=== PATIENT | female | born 1955 | race Caucasian/White ===

== ENCOUNTER 2016-10-22 03:39 | Emergency (ER) | payer SELFPAY ==
[~2016-10-22 03:39] MED LIST: ALBUTEROL SULF8.5 GM IH; ALBUTEROL0.83 MG/ML INH; ALBUTEROL17 GM INH; ALBUTEROL2.5 MG/3 M IH; ANTIVERT25 MG PO; ATIVAN0.5 MG PO; BREO ELLIPTA 11 EAC1 IH; COMPAZINE10 M PO; CYCLOBENZAPRINE10 MG PO; DUONEB; DUONEB 2.5-0.5 M3 ML; DUONEB 2.5-0.5 M3 ML IH; DUONEB 2.5-0.5MG3 M1 AERO NEB; EPIPEN0.3 MG/0.1 IM; EQL FISH OIL 1,1 CA1 PO; EXTRA STRENGTH500 M1 PO; FLEXERIL5 MG PO; IPRAT-ALBUT 0.5-3 ML AERO NEB; IPRAT-ALBUT 0.5-3 ML IH; LEVAQUIN750 M1 PO; LEVAQUIN750 MG PO; MOTRIN600 MG PO; NOVOLOG MI100 UNITS/ SQ; PENICILLIN; PENICILLIN V P500 M1 PO; PERCOCET 5/3251 TAB PO; PERCOCET 5MG/AP1 TA3 PO; PREDNISONE; PREDNISONE10 M1 PO; PREDNISONE10 MG PO; PREDNISONE20 M1 PO; PREDNISONE20 MG; PREDNISONE20 MG PO; PREDNISONE5 M1 PO; PREDNISONE50 M1 PO; PRO AIR INH; PROAIR; PROAIR HFA8.5 GM IH; PROAIR HFA8.5 GM INH; PROVENTIL0.83 MG/ML IH; REGLAN10 MG PO; ROBITUSSIN15 MG/5 M1 PO; SINGULAIR10 MG PO; SYMBICORT 80-41 PUFF INH; TAMIFLU75 MG/CAP PO; TYLENOL EXTRA500 MG PO; TYLENOL325 M2 PO; TYLENOL325 MG PO; VENTOLIN HFA18 GM IH; VITAMIN B; VITAMIN C PO; VITAMIN D400 UNI1 PO; XANAX0.25 M1 PO; ZITHROMAX250 M1 PO; ZITHROMAX250MG Z-PAK PO
[2016-10-22] MEDS ORDERED: VALIUM5 M1 PO (05:22)
[2016-10-22] MEDS ORDERED: NORCO 5-325 TA1 EACH PO (05:22)
[2016-10-23] MEDS ORDERED: VALIUM5 M1 PO ×2 (04:26→06:05)
[2016-10-23] MEDS ORDERED: NORCO 5-325 TA1 EACH PO (04:27)
[2016-10-23] MEDS ORDERED: PERCOCET 5-3251 EACH PO (06:05)
[2017-02-01] MEDS ORDERED: COMBIVENT RESPIM4 G1 INH (19:47)
[2017-02-02] MEDS ORDERED: PROAIR HFA8.5 GM INH (08:31)
[2017-02-02] MEDS ORDERED: ULTRAM50 M1 PO (08:32)
== END 2016-10-22 05:44 ==
LOC: EDMED 03:39
DX: M54.12 Radiculopathy, cervical region (principal); E11.9 Type 2 diabetes mellitus without complications; J45.909 Unspecified asthma, uncomplicated; Z90.710 Acquired absence of both cervix and uterus; Z90.89 Acquired absence of other organs; Z79.899 Other long term (current) drug therapy; Z87.891 Personal history of nicotine dependence
CPT/HCPCS: J2270; J3360

== ENCOUNTER 2016-10-23 03:57 | Emergency (ER) | payer SELFPAY ==
[~2016-10-23 03:57] MED LIST changes: +NORCO 5-325 TA1 EACH PO; +VALIUM5 M1 PO
[2016-10-23] MEDS ORDERED: VALIUM5 M1 PO ×2 (04:26→06:05)
[2016-10-23] MEDS ORDERED: NORCO 5-325 TA1 EACH PO (04:27)
[2016-10-23 05:25] LABS: BASO % 0.3 % (0-2); EOS % 0.5 % (0-7); EOSINOPHIL ABSOLUTE COUNT 0.1 tho/cmm (0.0-0.7); HCT-HEMATOCRIT 40.6 % (34.0-49.0); HGB-HEMOGLOBIN 13.6 gm/dl (12.0-15.5); IMMATURE GRANULOCYTES ABSOLUTE 0.03 tho/cmm (0-0.03); IMMATURE GRANULOCYTES PERCENT 0.3 % (0-0.3); LYMPH % 15.4 % (20-45); LYMPH ABSOLUTE COUNT 1.7 tho/cmm (0.8-4.5); MCH (MEAN CORPUSCULAR HGB) 29.8 pg (28.0-32.0); MCHC MEAN CORPUSCULAR HGB CONC 33.5 % (32.0-36.0); MONO % 7.7 % (0-12); MONOCYTE ABSOLUTE COUNT 0.8 tho/cmm (0.0-1.2); NEUTROPHIL ABSOLUTE COUNT 8.3 tho/cmm (1.6-8.0); NEUTROPHIL-AUTOMATED 8.3 tho/cmm (1.6-8.0); NEUTROPHILS % 75.8 % (40-80); PLATELET COUNT 283 tho/cmm (150-450); RED BLOOD COUNT 4.56 mil/cmm (4.00-5.20); RED CELL DISTRIBUTION WIDTH 13.1 % (12.4-16.4); WHITE BLOOD COUNT 10.9 tho/cmm (4.0-10.0)
[2016-10-23 05:41] LABS: ANION GAP 11 mmol/L (0-20); BLOOD UREA NITROGEN 16 mg/dl (6-24); CALCIUM 9.1 mg/dl (8.5-10.5); CARBON DIOXIDE-VENOUS 27 mmol/L (22-32); CHLORIDE 106 mmol/l (96-110); CREATININE 0.82 mg/dl (0.50-1.10); GLUCOSE 177 mg/dL (70-110); POTASSIUM 3.9 mmol/L (3.7-5.1); SODIUM 140 mmol/L (135-145); eGFR VALUE FOR BLACK 89 mL/Min
[2016-10-23] MEDS ORDERED: PERCOCET 5-3251 EACH PO (06:05)
[2017-02-01] MEDS ORDERED: COMBIVENT RESPIM4 G1 INH (19:47)
[2017-02-02] MEDS ORDERED: PROAIR HFA8.5 GM INH (08:31)
[2017-02-02] MEDS ORDERED: ULTRAM50 M1 PO (08:32)
== END 2016-10-23 06:23 ==
LOC: EDMED 03:57
PROVIDERS: Emergency Medicine
DX: M54.12 Radiculopathy, cervical region (principal); E11.9 Type 2 diabetes mellitus without complications; J45.909 Unspecified asthma, uncomplicated; Z85.43 Personal history of malignant neoplasm of ovary; Z87.891 Personal history of nicotine dependence; Z79.51 Long term (current) use of inhaled steroids; Z79.899 Other long term (current) drug therapy
CPT/HCPCS: J1170; J3360

== ENCOUNTER 2016-11-20 03:45 | Emergency (ER) | payer SELFPAY ==
[~2016-11-20 03:45] MED LIST changes: +PERCOCET 5-3251 EACH PO
[2016-11-20] MEDS ORDERED: NO MEDS (04:09)
[2016-11-20 04:11] LABS: BASO % 0.3 % (0-2); EOS % 2.7 % (0-7); EOSINOPHIL ABSOLUTE COUNT 0.3 tho/cmm (0.0-0.7); HGB-HEMOGLOBIN 13.7 gm/dl (12.0-15.5); IMMATURE GRANULOCYTES ABSOLUTE 0.02 tho/cmm (0-0.03); IMMATURE GRANULOCYTES PERCENT 0.2 % (0-0.3); LYMPH % 30.5 % (20-45); LYMPH ABSOLUTE COUNT 3.3 tho/cmm (0.8-4.5); MCH (MEAN CORPUSCULAR HGB) 30.3 pg (28.0-32.0); MCHC MEAN CORPUSCULAR HGB CONC 33.4 % (32.0-36.0); MCV (MEAN CELL VOLUME) 90.7 fl (82.0-96.0); MEAN PLATELET VOLUME 9.1 cmc (9.4-12.4); MONO % 11.1 % (0-12); MONOCYTE ABSOLUTE COUNT 1.2 tho/cmm (0.0-1.2); NEUTROPHIL ABSOLUTE COUNT 5.9 tho/cmm (1.6-8.0); NEUTROPHIL-AUTOMATED 5.9 tho/cmm (1.6-8.0); NEUTROPHILS % 55.2 % (40-80); PLATELET COUNT 290 tho/cmm (150-450); RED BLOOD COUNT 4.52 mil/cmm (4.00-5.20); RED CELL DISTRIBUTION WIDTH 13.2 % (12.4-16.4); WHITE BLOOD COUNT 10.7 tho/cmm (4.0-10.0)
[2016-11-20 04:26] LABS: ANION GAP 14 mmol/L (0-20); BLOOD UREA NITROGEN 23 mg/dl (6-24); CALCIUM 9.3 mg/dl (8.5-10.5); CARBON DIOXIDE-VENOUS 26 mmol/L (22-32); CHLORIDE 106 mmol/l (96-110); CREATININE 0.93 mg/dl (0.50-1.10); GLUCOSE 172 mg/dL (70-110); SODIUM 143 mmol/L (135-145); eGFR VALUE FOR BLACK 76 mL/Min
[2016-11-20 04:46] LABS: POTASSIUM 3.3 mmol/L (3.7-5.1)
[2016-11-20] MEDS ORDERED: PREDNISONE20 M1 PO (05:30)
[2016-11-20] MEDS ORDERED: PROAIR HFA8.5 GM INH (05:35)
[2017-02-01] MEDS ORDERED: COMBIVENT RESPIM4 G1 INH (19:47)
[2017-02-02] MEDS ORDERED: PROAIR HFA8.5 GM INH (08:31)
[2017-02-02] MEDS ORDERED: ULTRAM50 M1 PO (08:32)
== END 2016-11-20 05:41 ==
LOC: EDMED 03:45
PROVIDERS: Emergency Medicine
DX: J45.901 Unspecified asthma with (acute) exacerbation (principal); E11.65 Type 2 diabetes mellitus with hyperglycemia; Z90.710 Acquired absence of both cervix and uterus; Z90.89 Acquired absence of other organs
CPT/HCPCS: J2930

== ENCOUNTER 2016-12-09 00:43 | Emergency (ER) | payer SELFPAY ==
[~2016-12-09 00:43] MED LIST changes: +NO MEDS
[2016-12-09 01:48] LABS: BASO % 0.2 % (0-2); EOS % 0.9 % (0-7); EOSINOPHIL ABSOLUTE COUNT 0.1 tho/cmm (0.0-0.7); HCT-HEMATOCRIT 39.4 % (34.0-49.0); HGB-HEMOGLOBIN 13.5 gm/dl (12.0-15.5); IMMATURE GRANULOCYTES ABSOLUTE 0.02 tho/cmm (0-0.03); IMMATURE GRANULOCYTES PERCENT 0.1 % (0-0.3); LYMPH % 13.4 % (20-45); LYMPH ABSOLUTE COUNT 1.8 tho/cmm (0.8-4.5); MCH (MEAN CORPUSCULAR HGB) 30.5 pg (28.0-32.0); MCHC MEAN CORPUSCULAR HGB CONC 34.3 % (32.0-36.0); MCV (MEAN CELL VOLUME) 89.1 fl (82.0-96.0); MEAN PLATELET VOLUME 9.2 cmc (9.4-12.4); MONO % 6.1 % (0-12); MONOCYTE ABSOLUTE COUNT 0.8 tho/cmm (0.0-1.2); NEUTROPHIL ABSOLUTE COUNT 10.9 tho/cmm (1.6-8.0); NEUTROPHIL-AUTOMATED 10.9 tho/cmm (1.6-8.0); NEUTROPHILS % 79.3 % (40-80); PLATELET COUNT 262 tho/cmm (150-450); RED BLOOD COUNT 4.42 mil/cmm (4.00-5.20); RED CELL DISTRIBUTION WIDTH 12.8 % (12.4-16.4); WHITE BLOOD COUNT 13.7 tho/cmm (4.0-10.0)
[2016-12-09 02:04] LABS: ANION GAP 13 mmol/L (0-20); BLOOD UREA NITROGEN 24 mg/dl (6-24); CARBON DIOXIDE-VENOUS 27 mmol/L (22-32); CHLORIDE 103 mmol/l (96-110); GLUCOSE 260 mg/dL (70-110); POTASSIUM 3.3 mmol/L (3.7-5.1); SODIUM 140 mmol/L (135-145); eGFR VALUE FOR BLACK 79 mL/Min
[2016-12-09] MEDS ORDERED: TRAMADOL HCL50 M2 PO (02:29)
[2016-12-09] MEDS ORDERED: PREDNISONE20 M1 PO (02:29)
[2016-12-09] MEDS ORDERED: PROAIR HFA8.5 GM INH (02:31)
[2017-02-01] MEDS ORDERED: COMBIVENT RESPIM4 G1 INH (19:47)
[2017-02-02] MEDS ORDERED: PROAIR HFA8.5 GM INH (08:31)
[2017-02-02] MEDS ORDERED: ULTRAM50 M1 PO (08:32)
== END 2016-12-09 02:38 ==
LOC: EDMED 00:43
PROVIDERS: Emergency Medicine
DX: J45.901 Unspecified asthma with (acute) exacerbation (principal); E11.9 Type 2 diabetes mellitus without complications
CPT/HCPCS: J1170; J2930; J3475; J7030

== ENCOUNTER 2016-12-26 04:08 | Emergency (ER) | payer SELFPAY ==
[~2016-12-26 04:08] MED LIST changes: +TRAMADOL HCL50 M2 PO
[2016-12-26] MEDS ORDERED: PREDNISONE10 M1 PO (06:53)
[2017-02-01] MEDS ORDERED: COMBIVENT RESPIM4 G1 INH (19:47)
[2017-02-02] MEDS ORDERED: PROAIR HFA8.5 GM INH (08:31)
[2017-02-02] MEDS ORDERED: ULTRAM50 M1 PO (08:32)
== END 2016-12-26 07:04 ==
LOC: EDMED 04:08
DX: J45.901 Unspecified asthma with (acute) exacerbation (principal); S39.012A Strain of muscle, fascia and tendon of lower back, initial encounter; E66.9 Obesity, unspecified; E11.9 Type 2 diabetes mellitus without complications; Z90.89 Acquired absence of other organs; Z90.710 Acquired absence of both cervix and uterus; Z87.891 Personal history of nicotine dependence; Z79.51 Long term (current) use of inhaled steroids; Z79.899 Other long term (current) drug therapy; X58.XXXA Exposure to other specified factors, initial encounter
CPT/HCPCS: J1170; J2930; J3475